=== PATIENT | female | born 1935 | race Caucasian/White ===

== ENCOUNTER 2020-08-18 21:39 | Emergency (ER) | payer MEDICARE, MEDICAID ==
[~2020-08-18] VITALS: Ht 165.1 cm; Wt 62.3 kg
[2020-08-18 22:02] LABS: BASO % 0.4 % (0.0-2.0); GRAN # 3.1 (1.4-6.5); HEMATOCRIT 42.8 % (37.0-47.0); LYMPH # 0.8 (1.2-3.4); LYMPH % 18.2 % (20.0-51.0); MEAN CELL VOLUME 93 fl (80.0-100.0); MEAN CORPUSCULAR HEMOGLOBIN 30 pg (27.0-31.0); MEAN CORPUSCULAR HGB CONC 33 g/dl (33.0-37.0); MEAN PLATELET VOLUME 8.7 fl (7.4-10.4); MONO # 0.6 (0.1-0.6); MONO % 13.2 % (1.7-9.3); PLATELET COUNT 243 K/mm3 (130-400); RED BLOOD COUNT 4.61 M/mm3 (4.10-5.30); REDCELL DISTRIBUTION WIDTH-CV 13.2 % (11.5-14.5)
[2020-08-18 22:08] LABS: PROTHROMBIN TIME 11.6 SECONDS (9.7-12.8)
[2020-08-18 22:10] LABS: PARTIAL THROMBOPLASTIN TIME 28.4 SECONDS (26.0-37.0)
[2020-08-18 22:20] LABS: C-REACTIVE PROTEIN 1.9 mg/dL (0.0-0.9)
[2020-08-18 22:21] LABS: ERYTHROCYTE SEDIMENTATION RATE 14 mm/hr (0-30)
[2020-08-18 22:31] LABS: TROPONIN-I < 0.012 ng/mL (0.000-0.035)
[2020-08-19 00:24] LABS: MUCOUS Present /lpf; PH 5 (5-8); SQUAMOUS EPITHELIAL 20-50 /hpf; URINE APPEARANCE Cloudy; URINE BACTERIA Occasional /hpf; URINE BILIRUBIN Negative (NEGATIVE); URINE BLOOD Negative (NEGATIVE); URINE COLOR Amber; URINE GLUCOSE Negative (NEGATIVE); URINE KETONE Negative (NEGATIVE); URINE LEUKOCYTE ESTERASE 3+ (NEGATIVE); URINE NITRATE Negative (NEGATIVE); URINE PROTEIN(semi-quant) 1+ (NEGATIVE); URINE RBC 20-50 /hpf; URINE WBC >50 /hpf
[2020-08-19] MEDS ORDERED: OMNICEF 300MG300 MG PO (00:58)
[2020-08-19] MEDS ORDERED: DECADRON6 MG PO (00:58)
[2020-08-19 01:04] LABS: ALBUMIN 3.8 gm/dL (3.5-5.0); BILIRUBIN,TOTAL 0.4 mg/dL (0.0-1.0); CALCIUM 8.9 mg/dL (8.4-10.2); CREATININE, serum 0.74 (0.52-1.25); POTASSIUM 4.2 mmol/L (3.4-5.0); TOTAL PROTEIN 7.1 gm/dL (6.4-8.2)
[2020-08-19] MEDS ORDERED: TYLENOL 325MG325 MG PO (02:31)
[2020-08-19] MEDS ORDERED: ALBUTEROL0.83 MG/ML IH (03:01)
[2020-08-19] MEDS ORDERED: PULMOZYME2.5 MG/2.5 IH (03:03)
[2020-08-19] MEDS ORDERED: VITAMIN B11000 MCG/M IM (03:03)
[2020-08-19] MEDS ORDERED: CYMBALTA 60MG60 MG PO (03:04)
[2020-08-19] MEDS ORDERED: GOOD SENSE TUS120 ML PO (03:06)
[2020-08-19] MEDS ORDERED: NORCO 325 MG-51 TAB PO ×2 (03:07→03:12)
[2020-08-19] MEDS ORDERED: COLACE 100100 MG/CAP PO (03:07)
[2020-08-19] MEDS ORDERED: ATIVAN 0.50.5 MG/TAB PO (03:09)
[2020-08-19] MEDS ORDERED: HYDROCORTISONE30 G3 TP (03:09)
[2020-08-19] MEDS ORDERED: MIRALAX PA17 GM/Dose PO (03:10)
[2020-08-19] MEDS ORDERED: GOOD NEIGH1200 MG/15 (03:10)
[2020-08-19] MEDS ORDERED: DUO-KAPS1 CAP PO (03:11)
[2020-08-19 03:15] VITALS: BP 120/67; PULSE 77
[2020-08-19] MEDS ORDERED: SEROQUEL 2525 MG/TAB PO (03:56)
[2020-08-19] MEDS ORDERED: PRILOTC (03:57)
[2020-08-19] MEDS ORDERED: DESYREL 50MG50 MG PO (03:57)
[2020-08-19] MEDS ORDERED: DULCOLAX S10 MG/SUPP RC (03:58)
[2020-08-19] MEDS ORDERED: [UNRECOGNIZED DRUG - OTHER] TOP (03:59)
[2020-08-19 19:20] LABS: COLLECTION METHOD CATHETER
== END 2020-08-19 03:30 | disposition home or self-care (01) ==
LOC: COL.ER 21:39
PROVIDERS: Emergency Medicine
DX: U07.1 COVID-19 (principal); J12.82 Pneumonia due to coronavirus disease 2019; N39.0 Urinary tract infection, site not specified; Z88.2 Allergy status to sulfonamides
CPT/HCPCS: J0456; J0696; J1100; J7030; J7050

== ENCOUNTER 2020-08-20 18:39 | Inpatient (IN) | payer MEDICARE, MEDICAID ==
[2020-08-20] VITALS (24 sets, daily range): O2SAT 75–100
[~2020-08-20] VITALS: Wt 61.8 kg
[~2020-08-20 18:39] MED LIST: ALBUTEROL0.83 MG/ML IH; ATIVAN 0.50.5 MG/TAB PO; COLACE 100100 MG/CAP PO; CYMBALTA 60MG60 MG PO; DECADRON6 MG PO; DESYREL 50MG50 MG PO; DULCOLAX S10 MG/SUPP RC; DUO-KAPS1 CAP PO; GOOD NEIGH1200 MG/15; GOOD SENSE TUS120 ML PO; HYDROCORTISONE30 G3 TP; MIRALAX PA17 GM/Dose PO; NORCO 325 MG-51 TAB PO; OMNICEF 300MG300 MG PO; PRILOTC; PULMOZYME2.5 MG/2.5 IH; SEROQUEL 2525 MG/TAB PO; TYLENOL 325MG325 MG PO; VITAMIN B11000 MCG/M IM; [UNRECOGNIZED DRUG - OTHER] TOP
[2020-08-20 19:06] LABS: HEMATOCRIT 42.6 % (37.0-47.0); MEAN CELL VOLUME 92 fl (80.0-100.0); MEAN CORPUSCULAR HEMOGLOBIN 30 pg (27.0-31.0); MEAN CORPUSCULAR HGB CONC 33 g/dl (33.0-37.0); PLATELET COUNT 264 K/mm3 (130-400); RED BLOOD COUNT 4.63 M/mm3 (4.10-5.30); REDCELL DISTRIBUTION WIDTH-CV 12.7 % (11.5-14.5)
[2020-08-20 19:21] LABS: ALBUMIN 4.1 gm/dL (3.5-5.0); BILIRUBIN,TOTAL 0.4 mg/dL (0.0-1.0); CALCIUM 8.9 mg/dL (8.4-10.2); CREATININE, serum 0.78 (0.52-1.25); POTASSIUM 3.9 mmol/L (3.4-5.0); TOTAL PROTEIN 7.3 gm/dL (6.4-8.2)
[2020-08-20 19:41] LABS: ARTERIAL BLD GAS O2 SATURATION 92.3 % (92-100); ARTERIAL BLOOD GAS BASE EXCESS -5.6 (-2-2); ARTERIAL BLOOD GAS HCO3 19.8 meq/L (22-26); ARTERIAL BLOOD GAS PCO2 38.5 mmHg (35-45); ARTERIAL BLOOD GAS PO2 69.8 mmHg (80-100); ARTERIAL BLOOD GAS pH 7.33 (7.35-7.45)
[2020-08-20 19:46] LABS: HYPOCHROMIA 1+; LYMPHOCYTE 1 % (20.0-51.0); NEUTROPHILS 95 % (42.0-75.2); PLATELET ESTIMATE NORMAL (NORMAL)
[2020-08-20 19:50] LABS: TROPONIN-I 0.344 ng/mL (0.000-0.035)
[2020-08-20 21:32] LABS: COLLECTION METHOD CATHETER
[2020-08-20 21:40] LABS: MUCOUS Present /lpf; PH 5 (5-8); URINE APPEARANCE Hazy; URINE BACTERIA None Seen /hpf; URINE BILIRUBIN Negative (NEGATIVE); URINE BLOOD Negative (NEGATIVE); URINE COLOR Yellow; URINE GLUCOSE Negative (NEGATIVE); URINE KETONE Negative (NEGATIVE); URINE LEUKOCYTE ESTERASE Negative (NEGATIVE); URINE NITRATE Negative (NEGATIVE); URINE PROTEIN(semi-quant) 1+ (NEGATIVE); URINE RBC 0-2 /hpf; URINE UROBILINOGEN Negative (NEGATIVE)
--- NOTE | 2020-08-20 23:40 | NUR ---
Arrived to the unit via stretcher; alert and oriented to self only. Patient appeared scared and began crying when told she was in the hospital. Attempted to re-orient and reassure patient. Able to squeeze nurses hands on command and can respond to some simple yes and no quesions appropriately. Assisted with tracey-care and placed purwick due to incontinence. Attached to all monitors. Call light left within reach.
[2020-08-21] VITALS (799 sets, daily range): BP systolic 113–149; BP diastolic 69–84; PULSE 68–76; TEMP 97.7–99.5; O2SAT 67–100
[2020-08-21] MEDS ORDERED: PULMICORT0.5 MG/2 M IH (02:48)
[2020-08-21 04:43] LABS: MEAN CELL VOLUME 93 fl (80.0-100.0); MEAN CORPUSCULAR HGB CONC 32 g/dl (33.0-37.0); PLATELET COUNT 216 K/mm3 (130-400); RED BLOOD COUNT 3.91 M/mm3 (4.10-5.30)
[2020-08-21 04:46] LABS: HEMATOCRIT 36.2 % (37.0-47.0); HEMOGLOBIN 11.7 g/dl (12.5-16.0); MEAN CORPUSCULAR HEMOGLOBIN 30 pg (27.0-31.0)
[2020-08-21 04:55] LABS: ALBUMIN 3.2 gm/dL (3.5-5.0); BILIRUBIN,TOTAL 0.3 mg/dL (0.0-1.0); CALCIUM 7.7 mg/dL (8.4-10.2); CREATININE, serum 0.61 (0.52-1.25); TOTAL PROTEIN 6.1 gm/dL (6.4-8.2)
--- NOTE | 2020-08-21 05:00 | NUR ---
Patient awake and resting in bed; occasionally takes off her oxygen cannula. Staff assists patient to put cannula back on. Reminded of importance of keeping her oxygen on at all times. Patient pleasantly confused but cooperative with staff. VS stable; call light left within reach.
[2020-08-21 05:09] LABS: HYPOCHROMIA 1+; LYMPHOCYTE 6 % (20.0-51.0); NEUTROPHILS 92 % (42.0-75.2); PLATELET ESTIMATE NORMAL (NORMAL)
[2020-08-21 05:14] LABS: TROPONIN-I 0.211 ng/mL (0.000-0.035)
--- NOTE | 2020-08-21 06:25 | NUR ---
Notified by blemish removerEm NYE that patient's heart rate was in the 140's. Upon entering the room patient was oberved with her legs sideways partly out of the bed. Nasal cannula was out of her nose and patient was extremely anxious and crying. Cannula was put back in nose and with the assistance of POPEYE Strickland. Patient was repositiong appropriately into bed. Attempted to calm and reassure patient. A pproximately 10 min HR in the 90's and 02 93% on 4L. Pt in sinus rhythm at this time.
--- NOTE | 2020-08-21 11:21 | NUR ---
[employer] contacted patient's DPOA-HC/niece, Abbie Goodman (ph#[phone]) to complete initial intake. [facility] Dr[facility] Archibald for primary care. Abbie states her mother, Roslaina Patton was patient's DPOA, however she last August. Plan is for patient to return to [facility] upon discharge. SW contacted [facility] and requested copy of DPOA-HC. SW received DPOA-HC via fax then placed copy on patient's chart. SW [facility]ed [facility] to [facility]. CARLOS attended clinical rounds with the team and patient to transfer to the medical floor once a bed is available. CARLOS will continue to follow.
--- NOTE | 2020-08-21 12:03 | NUR ---
Chaplain begum for the patient while standing outside the door.
--- NOTE | 2020-08-21 21:30 | NUR ---
Patient in bed crying with labored breathing. Assisted with repositioning to a more comfortable position. This nurse talked with patient for several minutes in attempt to calm and reassure her. Patient responded well to verbal reassurance. Has PRN pain and anxiety medications which will be administered. Will continue to monitor.
[2020-08-22] VITALS (97 sets, daily range): BP systolic 122–212; BP diastolic 66–149; PULSE 61–97; TEMP 97.4–102.6; O2SAT 75–99
--- NOTE | 2020-08-22 03:00 | NUR ---
Patient transfered from unit to medical floor. Patient alert per her usual and in no distress upon transfer. Belongings transfered with patient.
--- NOTE | 2020-08-22 06:14 | NUR ---
Patient arrived to medical unit from ICU at approximately 0300. Patient was on oxygen at 3 L/min via NC. SPO2 88-89%. Increased oxygen to 4 L/min via NC, with SPO2 at 92-94%. Denies having pain and discomfort. INT to right forearm. LS expiratory wheezing. Respirations even and unlabored. HRR. Telemetry in place. Capillary refill less than 3 seconds. Non-tenting skin turgor. BSAx4. Abdomen soft and non-tender. No edema. Voices no questions, needs, or concerns at this time. Resting in bed with call light within reach.
[2020-08-22 06:40] LABS: BASO % 0.1 % (0.0-2.0); HEMATOCRIT 37.2 % (37.0-47.0); HEMOGLOBIN 12.1 g/dl (12.5-16.0); LYMPH # 0.7 (1.2-3.4); LYMPH % 9.6 % (20.0-51.0); MEAN CELL VOLUME 94 fl (80.0-100.0); MEAN CORPUSCULAR HEMOGLOBIN 31 pg (27.0-31.0); MEAN CORPUSCULAR HGB CONC 33 g/dl (33.0-37.0); MEAN PLATELET VOLUME 9.4 fl (7.4-10.4); MONO # 0.6 (0.1-0.6); MONO % 7.8 % (1.7-9.3); PLATELET COUNT 234 K/mm3 (130-400); RED BLOOD COUNT 3.94 M/mm3 (4.10-5.30); REDCELL DISTRIBUTION WIDTH-CV 13.1 % (11.5-14.5)
[2020-08-22 06:49] LABS: CALCIUM 8.4 mg/dL (8.4-10.2); CREATININE, serum 0.74 (0.52-1.25); MAGNESIUM 2.2 mg/dL (1.6-2.3); POTASSIUM 3.6 mmol/L (3.4-5.0)
[2020-08-22 07:08] LABS: TROPONIN-I 0.07 ng/mL (0.000-0.035)
--- NOTE | 2020-08-22 11:16 | NUR ---
Patient alert and oriented to self. withdraw body when accessing abdomen. patient tachypnea 22-24/mins. refuse back and sacral region assessment. Patient took medication okay. resting in bed at this time.
--- NOTE | 2020-08-22 12:05 | NUR ---
gave tylenol for temp of 102.6, 88% on 5L, o2 increased to 7L at 93%.
[2020-08-22 15:30] LABS: ARTERIAL BLD GAS O2 SATURATION 96.9 % (92-100); ARTERIAL BLD GAS TCO2 CT 22.1; ARTERIAL BLOOD GAS BASE EXCESS -3.4 (-2-2); ARTERIAL BLOOD GAS PCO2 35.6 mmHg (35-45); ARTERIAL BLOOD GAS PO2 92.9 mmHg (80-100); ARTERIAL BLOOD GAS pH 7.39 (7.35-7.45)
--- NOTE | 2020-08-22 16:52 | NUR ---
Patient resting in bed. incontinent of urine and stool. Purewick in place attached to medium suction. Patient on 7L HFNC at 94%. REMDESIVIR DAY 2 TODAY. ABG PH7.79, CO2 - 35.6, HCO3 21.0 . LOSS STOOL * 1
--- NOTE | 2020-08-22 20:50 | NUR ---
Patient assessed at this time. Alert and oriented to self. High fall risk precautions in place. Peripheral IV to right forearm. On oxygen at 5 L/min via NC. LS CTA in upper lobes, diminished in lower. Respirations even and unlabored. HRR. Telemetry in place. Capillary refill less than 3 seconds. Non-tenting skin turgor. BSAx4. Abdomen soft and non-tender. 1+ edema BLE. Purewick exernal female catheter with clear carola urine. Resting in bed with call light within reach.
[2020-08-23] VITALS (7 sets, daily range): BP systolic 113–153; BP diastolic 54–75; PULSE 47–56; TEMP 97.2–98.2
--- NOTE | 2020-08-23 06:30 | NUR ---
Patient has been resting in bed with call light within reach. Awakens easily. Very hard of hearing. Denies pain and discomfort. Continues on oxygen at 5 L/min via NC. Patient repositioned in bed. Purewick catheter changed. Voices no questions, needs, or concerns at this time. Resting in bed with call light within reach. High fall risk precautions in place.
[2020-08-23 07:09] LABS: CALCIUM 8.4 mg/dL (8.4-10.2); CREATININE, serum 0.56 (0.52-1.25); GRAN # 2.6 (1.4-6.5); GRAN % 67.4 % (42.2-75.2); HEMATOCRIT 37.4 % (37.0-47.0); HEMOGLOBIN 12.2 g/dl (12.5-16.0); LYMPH # 0.7 (1.2-3.4); LYMPH % 17.9 % (20.0-51.0); MEAN CELL VOLUME 91 fl (80.0-100.0); MEAN CORPUSCULAR HEMOGLOBIN 30 pg (27.0-31.0); MEAN CORPUSCULAR HGB CONC 33 g/dl (33.0-37.0); MEAN PLATELET VOLUME 9.7 fl (7.4-10.4); MONO # 0.6 (0.1-0.6); MONO % 14.2 % (1.7-9.3); PLATELET COUNT 242 K/mm3 (130-400); POTASSIUM 3.5 mmol/L (3.4-5.0); REDCELL DISTRIBUTION WIDTH-CV 12.8 % (11.5-14.5)
--- NOTE | 2020-08-23 14:40 | NUR ---
CARLOS Saravia) faxed record updates to [facility] per request. Social work will continue to follow.
--- NOTE | 2020-08-23 15:06 | NUR ---
Pt assessment completed and charted, medications administered per mar. Pt has been alert but confused. Pt on 4L HFNC today, satting well, breathing even and unlabored. LS cta. HRRR, BS active. Pt had 22G IV to RF, infiltrated, site moved, 22G to LF, flushes well. Pt has purewick external catheter in place, draining clear carola urine. Pt repositioned throughout day, heels floated, no skin issues noted. Pt refusing to eat, states she is not hungry. Will try to get her to eat dinner. Pt c/o back pain, pain medication administered per mar. No further needs expressed.
--- NOTE | 2020-08-23 17:35 | NUR ---
Pt refusing dinner at this time.
[2020-08-24 04:00] VITALS: BP 126/83; PULSE 52; TEMP 97.3
--- NOTE | 2020-08-24 06:22 | NUR ---
RESTING QUIETLY. NO DYSPNEA AT REST. O2 ON AT 3.5 LITERS WHEN PT WAS WILLING TO WEAR IT.
[2020-08-24 07:34] VITALS: BP 124/57; PULSE 56; TEMP 97.4
[2020-08-24 08:07] LABS: GRAN # 3.7 (1.4-6.5); GRAN % 72.4 % (42.2-75.2); HEMATOCRIT 39.4 % (37.0-47.0); HEMOGLOBIN 13.1 g/dl (12.5-16.0); LYMPH # 0.9 (1.2-3.4); LYMPH % 17.5 % (20.0-51.0); MEAN CELL VOLUME 91 fl (80.0-100.0); MEAN CORPUSCULAR HEMOGLOBIN 30 pg (27.0-31.0); MEAN CORPUSCULAR HGB CONC 33 g/dl (33.0-37.0); MEAN PLATELET VOLUME 10.2 fl (7.4-10.4); MONO # 0.5 (0.1-0.6); MONO % 9.7 % (1.7-9.3); PLATELET COUNT 319 K/mm3 (130-400); RED BLOOD COUNT 4.35 M/mm3 (4.10-5.30); REDCELL DISTRIBUTION WIDTH-CV 12.5 % (11.5-14.5)
[2020-08-24 08:20] LABS: CALCIUM 8.7 mg/dL (8.4-10.2); CREATININE, serum 0.68 (0.52-1.25); POTASSIUM 3.3 mmol/L (3.4-5.0)
--- NOTE | 2020-08-24 10:09 | NUR ---
Pt assessment completed and charted, medications administered per mar. pt tolerated well. Pt alert but confused. Pt denies pain, doesn't appear to be in distress. Pt has LFA INT IV that flushes well. Pt on 3L HFNC. UL LS cta. No edema noted. Pt assisted in eating some breakfast, refused most of it. No other needs expressed at this time. Pt repositioned. Pure wick external catheter in place, draining cloudy carola urine.
[2020-08-24 11:23] VITALS: BP 115/88; PULSE 61; TEMP 97.2
--- NOTE | 2020-08-24 16:17 | NUR ---
New IV started, 22G to RFA. LFA INT IV was infiltrated. Abx running w/o issue.
[2020-08-24 16:51] VITALS: BP 149/79; PULSE 50
[2020-08-24 21:17] VITALS: BP 127/82; PULSE 53; TEMP 98.8
[2020-08-25] VITALS (7 sets, daily range): BP systolic 129–152; BP diastolic 53–92; PULSE 45–53; TEMP 97.2–98.2
--- NOTE | 2020-08-25 05:38 | NUR ---
NO DYSPNEA AT REST. HEART RATE USUALLY RUNNING 37-45 bpm WHEN ASLEEP, SINUS RHYTHM. PT DENIED DISCOMFORT THIS MORNING. POOR URINARY OUTPUT THOUGH PT HAS NOT TAKEN IN A GREAT DEAL OF WATER DURING THE NIGHT.
[2020-08-25 07:20] LABS: GRAN # 5.2 (1.4-6.5); GRAN % 72.8 % (42.2-75.2); HEMOGLOBIN 13.2 g/dl (12.5-16.0); LYMPH # 1.1 (1.2-3.4); LYMPH % 14.6 % (20.0-51.0); MEAN CELL VOLUME 92 fl (80.0-100.0); MEAN CORPUSCULAR HEMOGLOBIN 30 pg (27.0-31.0); MEAN CORPUSCULAR HGB CONC 33 g/dl (33.0-37.0); MEAN PLATELET VOLUME 10.1 fl (7.4-10.4); MONO # 0.9 (0.1-0.6); PLATELET COUNT 341 K/mm3 (130-400); RED BLOOD COUNT 4.35 M/mm3 (4.10-5.30); REDCELL DISTRIBUTION WIDTH-CV 12.6 % (11.5-14.5)
[2020-08-25 07:40] LABS: CALCIUM 8.7 mg/dL (8.4-10.2); CREATININE, serum 0.62 (0.52-1.25); POTASSIUM 3.8 mmol/L (3.4-5.0)
--- NOTE | 2020-08-25 12:09 | NUR ---
The patient is to tentatively d/c tomorrow, 08/26. CARLOS notified and faxed updates to Mony at [facility]. CARLOS contacted and updated the patient's niece, Abbie. Abbie is agreeable to the plan. CARLOS also read the IM form outloud to Abbie over the phone. Abbie verbalized understanding and gave SW approval to sign the form on her behalf. SW to continue to follow.
--- NOTE | 2020-08-25 16:37 | NUR ---
0830: Pt assessment completed and charted, medications administered per oct. pt alert, confused at baseline. This nurse in room at 0830 this morning for assessment and meds. Pt laying in bed, pt c/o pain, difficult to assess where the pain is, pt unable to describe or rate the pain. Pt states she pain in her legs, no swelling or redness noted. Pt then states her abdomen hurts but unable to describe it. Hospitalist in to assess patient, pt c/o of pain during auscultation of heart. PRN [place] and one time dose of toradol administered per oct/physician order. @ 0900 and 0926. Incontinent care provided, purewick changed. Pts moods up and down, pt appears happy and then crying and back to calm within seconds, pt consoled and support provided. Pt cooperative w/ cares. Pt has RFA INT IV that flushes well, no issues noted at this time. LS cta, no other concerns expressed. 1700: Pt mood has improved, denying pain at this time.
--- NOTE | 2020-08-25 23:29 | NUR ---
Patient alert but not oriented. Patient denies any pain or discomfort. Denies SOB or dyspnea. Patient currently on oxygen 2L via NC. Breathing even and unlabored. No s/s of respiratory distress noted. Scheduleld meds given per OCT. Right forearm IV site has no s/s of complications. Purewick in place and draining dark tea color urine. Call light within reach. Patient denies any need at this time.
[2020-08-26 03:35] VITALS: BP 145/73; PULSE 53; TEMP 97.5
--- NOTE | 2020-08-26 05:28 | NUR ---
Noticed patient was moaning and soft crying at 00:20 am. Patient reports hurting everywhere. PRN [place] given at 00: 29 am for generalized pain. PRN Ativan given for anxiety. Patient slept well afterwards. Right forearm IV got infiltrated this am. Removed IV, applied ice pack and elevated right arm on the pillow. 22G INT to left forearm started by powerhouse helper. Call light within reach. Will give report to day shift nurse.
[2020-08-26 07:15] LABS: HEMOGLOBIN 13.4 g/dl (12.5-16.0); MEAN CELL VOLUME 92 fl (80.0-100.0); MEAN CORPUSCULAR HEMOGLOBIN 31 pg (27.0-31.0); MEAN CORPUSCULAR HGB CONC 34 g/dl (33.0-37.0); MEAN PLATELET VOLUME 10.4 fl (7.4-10.4); PLATELET COUNT 354 K/mm3 (130-400); RED BLOOD COUNT 4.33 M/mm3 (4.10-5.30); REDCELL DISTRIBUTION WIDTH-CV 12.6 % (11.5-14.5)
[2020-08-26 07:23] LABS: CALCIUM 8.6 mg/dL (8.4-10.2); CREATININE, serum 0.74 (0.52-1.25); POTASSIUM 3.8 mmol/L (3.4-5.0)
[2020-08-26 08:30] VITALS: BP 166/72; PULSE 51; TEMP 97.1
[2020-08-26 09:33] LABS: BAND 4 % (0-10); LYMPHOCYTE 16 % (20.0-51.0); METAMYELOCYTE 2 % (0-0); NEUTROPHILS 64 % (42.0-75.2); PLATELET ESTIMATE NORMAL (NORMAL)
[2020-08-26] MEDS ORDERED: ASPIRIN E.C. 8181 MG PO (09:34)
[2020-08-26] MEDS ORDERED: DECADRON6 MG PO (09:34)
[2020-08-26] MEDS ORDERED: TOPROL XL 25MG25 MG PO (09:34)
[2020-08-26] MEDS ORDERED: LIPITOR 40MG TA40 MG PO (09:34)
[2020-08-26] MEDS ORDERED: NORCO 325 MG-51 TAB PO (09:34)
[2020-08-26] MEDS ORDERED: ATIVAN 0.50.5 MG/TAB PO (09:34)
[2020-08-26] MEDS ORDERED: RT Albuterol HFA MDI IH (09:34)
--- NOTE | 2020-08-26 09:36 | NUR ---
The patient is to discharge today, 08/26, back to [facility] for long-term care. Transportation was scheduled at 1300, via [place]. CARLOS informed the patient's RN and her niece, Abbie, over the phone. They were both agreeable to the time. No additional needs at this time.
--- NOTE | 2020-08-26 09:57 | NUR ---
Patient alert and oriented to only self. show signs of pain by withdrawing and moan during assessment. Plan is to discharge patient to [facility]. discharging with oxygen 2L, new order for ativan, norco and decadron. Patient show low interest towards meal. Resting in bed at this time.
[2020-08-26 11:28] VITALS: BP 137/61; PULSE 53; TEMP 97.7
--- NOTE | 2020-08-26 12:21 | NUR ---
Patient resting in bed. RN called report to [facility], spoke with Mony receiving nursing. Informed Mony about medications administered to patient this am, new medications, current vitals, abnormal labs, and treatment plan during hospitalization. INT discontinued.
--- NOTE | 2020-08-26 15:50 | NUR ---
patient discharged to [facility].
== END 2020-08-26 14:30 | DRG 177 ==
LOC: COL.ER 18:39 → ICU 19:07 → MEDICAL 08-22 03:18
PROVIDERS: Emergency Medicine; Physician Assistant; ADMIT Internal Medicine
PROC: XW033E5 Introduction of Remdesivir Anti-infective into Peripheral Vein, Percutaneous Approach, New Technology Group 5 (ICD-10-PCS; principal; 2020-08-20)
DX: U07.1 COVID-19 (principal); J96.01 Acute respiratory failure with hypoxia; J12.82 Pneumonia due to coronavirus disease 2019; I21.A1 Myocardial infarction type 2; E87.2 Acidosis; I31.3 Pericardial effusion (noninflammatory); N39.0 Urinary tract infection, site not specified; J44.0 Chronic obstructive pulmonary disease with (acute) lower respiratory infection; Z66 Do not resuscitate; I27.20 Pulmonary hypertension, unspecified; E87.6 Hypokalemia; R00.1 Bradycardia, unspecified; F03.90 Unspecified dementia, unspecified severity, without behavioral disturbance, psychotic disturbance, mood disturbance, and anxiety; K21.9 Gastro-esophageal reflux disease without esophagitis; F31.9 Bipolar disorder, unspecified; F41.9 Anxiety disorder, unspecified; G89.29 Other chronic pain; I10 Essential (primary) hypertension; M19.90 Unspecified osteoarthritis, unspecified site; Z88.2 Allergy status to sulfonamides
CPT/HCPCS: 99223-AI; 99232-AI; 99233-AI; 99239; J0456; J0696; J1100; J1650; J1885; J2270; J2405; J7030; J7050; J8540; Q9967

== ENCOUNTER 2020-11-12 10:50 | Emergency (ER) | payer MEDICARE, MEDICAID ==
[~2020-11-12] VITALS: Ht 157.5 cm; Wt 59.1 kg
[~2020-11-12 10:50] MED LIST changes: +ASPIRIN E.C. 8181 MG PO; +LIPITOR 40MG TA40 MG PO; +PULMICORT0.5 MG/2 M IH; +RT Albuterol HFA MDI IH; +TOPROL XL 25MG25 MG PO
[2020-11-12 11:01] VITALS: TEMP 97.6
[2020-11-12 11:44] LABS: BASO # 0.1 (0.0-0.2); BASO % 1.3 % (0.0-2.0); EOS # 0.1 (0.0-0.7); GRAN # 4.1 (1.4-6.5); GRAN % 67.4 % (42.2-75.2); HEMATOCRIT 47.5 % (37.0-47.0); HEMOGLOBIN 15.4 g/dl (12.5-16.0); LYMPH # 1.3 (1.2-3.4); LYMPH % 20.7 % (20.0-51.0); MEAN CELL VOLUME 94 fl (80.0-100.0); MEAN CORPUSCULAR HEMOGLOBIN 31 pg (27.0-31.0); MEAN CORPUSCULAR HGB CONC 32 g/dl (33.0-37.0); MEAN PLATELET VOLUME 8.7 fl (7.4-10.4); MONO # 0.5 (0.1-0.6); MONO % 8.3 % (1.7-9.3); PLATELET COUNT 365 K/mm3 (130-400); RED BLOOD COUNT 5.04 M/mm3 (4.10-5.30); REDCELL DISTRIBUTION WIDTH-CV 13.2 % (11.5-14.5)
[2020-11-12 11:52] LABS: COLLECTION METHOD CATHETER
[2020-11-12 11:54] LABS: ALANINE AMINOTRANSFERASE 46 U/L (4-34); ALBUMIN 4.1 gm/dL (3.5-5.0); ALKALINE PHOSPHATASE 77 U/L (50-136); ANION GAP 7 mmol/L (7-16); AST,SGOT 46 U/L (15-37); BILIRUBIN,TOTAL 0.3 mg/dL (0.0-1.0); BLOOD UREA NITROGEN 21 mg/dL (7-17); CALCIUM 9.5 mg/dL (8.4-10.2); CARBON DIOXIDE 27 mmol/L (22-30); CHLORIDE 108 mmol/L (98-107); CREATININE, serum 0.65 (0.52-1.25); GLUCOSE 90 mg/dL (74-106); POTASSIUM 4.3 mmol/L (3.4-5.0); SODIUM 141 mmol/L (137-145); TOTAL PROTEIN 7.9 gm/dL (6.4-8.2)
[2020-11-12 12:01] LABS: MUCOUS Present /lpf; PH 6 (5-8); SQUAMOUS EPITHELIAL 0-2 /hpf; URINE APPEARANCE Cloudy; URINE BACTERIA Moderate /hpf; URINE BILIRUBIN Negative (NEGATIVE); URINE BLOOD Negative (NEGATIVE); URINE COLOR Amber; URINE GLUCOSE Negative (NEGATIVE); URINE KETONE Negative (NEGATIVE); URINE LEUKOCYTE ESTERASE 3+ (NEGATIVE); URINE NITRATE Positive (NEGATIVE); URINE PROTEIN(semi-quant) 1+ (NEGATIVE); URINE UROBILINOGEN Negative (NEGATIVE)
[2020-11-12 12:08] LABS: TROPONIN-I < 0.012 ng/mL (0.000-0.035)
[2020-11-12] MEDS ORDERED: CEFTIN500 MG PO (12:40)
[2020-11-12 14:10] VITALS: BP 136/68; PULSE 67
[2021-05-16] MEDS ORDERED: CARDIZEM CD 24240 MG PO (11:19)
== END 2020-11-12 14:20 | disposition home or self-care (01) ==
LOC: COL.ER 10:50
PROVIDERS: Physician Assistant
DX: N39.0 Urinary tract infection, site not specified (principal); F31.9 Bipolar disorder, unspecified; I10 Essential (primary) hypertension; Z88.2 Allergy status to sulfonamides; Z79.82 Long term (current) use of aspirin; Z79.51 Long term (current) use of inhaled steroids
CPT/HCPCS: J0696; J7030

== ENCOUNTER 2021-05-14 08:51 | Observation (INO) | payer MEDICARE, MEDICAID ==
[~2021-05-14] VITALS: Ht 152.4 cm; Wt 56.0 kg
[~2021-05-14 08:51] MED LIST changes: +CEFTIN500 MG PO; -GOOD NEIGH1200 MG/15; +GOOD NEIGH1200 MG/15 PO
[2021-05-14 10:43] LABS: BASO # 0.1 K/mm3 (0.0-0.2); EOS # 0.3 K/mm3 (0.0-0.7); EOS % 3.6 % (0-4.0); GRAN # 4.5 K/mm3 (1.4-6.5); GRAN % 64.4 % (42.2-75.2); HEMATOCRIT 42.7 % (37.0-47.0); HEMOGLOBIN 13.7 g/dl (12.5-16.0); LYMPH # 1.3 K/mm3 (1.2-3.4); LYMPH % 18.2 % (20.0-51.0); MEAN CELL VOLUME 96 fl (80.0-100.0); MEAN CORPUSCULAR HEMOGLOBIN 31 pg (27.0-31.0); MEAN CORPUSCULAR HGB CONC 32 g/dl (33.0-37.0); MEAN PLATELET VOLUME 9.1 fl (7.4-10.4); MONO # 0.9 K/mm3 (0.1-0.6); MONO % 12.4 % (1.7-9.3); PLATELET COUNT 378 K/mm3 (130-400); RED BLOOD COUNT 4.45 M/mm3 (4.10-5.30); REDCELL DISTRIBUTION WIDTH-CV 13.6 % (11.5-14.5)
[2021-05-14 10:50] LABS: INR 1.2 (0.8-3.0); PROTHROMBIN TIME 12.9 SECONDS (9.7-12.8)
[2021-05-14 11:04] LABS: BUDDING YEAST Present /hpf; MUCOUS Present /lpf; PH 6 (5-8); SQUAMOUS EPITHELIAL 0-2 /hpf; URINE APPEARANCE Cloudy; URINE BACTERIA None Seen /hpf; URINE BILIRUBIN Negative (NEGATIVE); URINE BLOOD Negative (NEGATIVE); URINE COLOR Amber; URINE GLUCOSE Negative (NEGATIVE); URINE KETONE Negative (NEGATIVE); URINE LEUKOCYTE ESTERASE 3+ (NEGATIVE); URINE NITRATE Negative (NEGATIVE); URINE PROTEIN(semi-quant) 1+ (NEGATIVE)
[2021-05-14 11:05] LABS: COLLECTION METHOD CATHETER
[2021-05-14 11:19] LABS: ALBUMIN 3.6 gm/dL (3.4-4.8); BILIRUBIN,TOTAL 0.6 mg/dL (0.2-1.2); C-REACTIVE PROTEIN 2.2 mg/dL (0.00-0.50); CALCIUM 9.6 mg/dL (8.4-10.2); CREATININE, serum 0.82 mg/dL (0.57-1.11); TOTAL PROTEIN 7.4 gm/dL (6.2-8.1)
--- NOTE | 2021-05-14 13:14 | NUR ---
Patient admitted to room 312. Patient agitated upon transfer. Will complete full assessment at a later time. Fall precautions in place. Call light in reach.
[2021-05-14 13:40] VITALS: BP 142/82; PULSE 83; TEMP 98.1
[2021-05-14 15:55] VITALS: BP 117/59; PULSE 88; TEMP 97.3
--- NOTE | 2021-05-14 19:32 | NUR ---
LISANDRO JIN NOTIFIED OF PATIENT'S HEART RATE JUMPING INTO THE 140'S SUSTAINING FOR A COUPLE OF MINUTES AND THEN DROPPING INTO THE 80'S AND 90'S. MAEVE NOTIFIED. TOLD THIS RN TO OBSERVE OVERNIGHT AND NOTIFY HIM IF HEART RATE WENT OVER 150. EKG ORDERED. INFORMATION PASSED TO POPEYE WALTERS ON [employer] WORKER.
[2021-05-14] MEDS ORDERED: TYLENOL 325MG325 MG PO (19:53)
[2021-05-14] MEDS ORDERED: ALBUTEROL0.83 MG/ML IH (20:12)
[2021-05-14] MEDS ORDERED: ZANTAC-360 (FAM10 MG PO (20:14)
[2021-05-14] MEDS ORDERED: SHINGRIX V50 MCG/0.5 IM (20:15)
[2021-05-14 20:27] VITALS: BP 132/90; PULSE 138; TEMP 98.3
--- NOTE | 2021-05-14 20:30 | NUR ---
INitial shift assessment done- patient very confused, labile in emotions,VSS, o2 at 2L/nc- sats 97%.. Tele on- at times tachy but doesnt last long-few minutes,, per EKG is a junctional tachycardia,, Has purewick on - urine carola, new IV started to right wrist area-- has IV fluids of NS at 50cc/hr
[2021-05-14 21:37] LABS: HEMATOCRIT 43.4 % (37.0-47.0); HEMOGLOBIN 14.2 g/dl (12.5-16.0)
--- NOTE | 2021-05-14 22:45 | NUR ---
Iris OVIEDO called regarding Tele, patient having tachycardia 120-138, only lasts few minutes then back to a sinus 70,s , has some Afib, Afib RVR, and juctional tachycardia, EKG ealier around 2100 showed the junctional tachycardia-- continues to assess on Tele , order to give a dose of lopressor IV at this time, VSS.
[2021-05-14 22:49] VITALS: BP 129/84; PULSE 109
[2021-05-15 00:05] VITALS: BP 107/86; PULSE 76
--- NOTE | 2021-05-15 00:30 | NUR ---
Iris OVIEDO informed of heart rate staying in the 60-70,s after the Lopressor was given-- informed her respiration are in the 30,s sats 97% on the 2L/nc, will give the prn Ativan at this time to help her relax
[2021-05-15 03:33] VITALS: BP 137/83; PULSE 127; TEMP 98.1
--- NOTE | 2021-05-15 05:20 | NUR ---
Has been sleeping well for the past 4-5 hours, turning self in bed, purewick working well- draining carola urine. Tele on- Did have another tachy episide around -05 this am, junctional tachycardia 120,s ,, will let Iris OVIEDO know. Now patients heart is back to 70,s
[2021-05-15 06:38] LABS: BASO # 0.1 K/mm3 (0.0-0.2); BASO % 1.3 % (0.0-2.0); EOS # 0.4 K/mm3 (0.0-0.7); EOS % 6.5 % (0-4.0); GRAN # 3.1 K/mm3 (1.4-6.5); GRAN % 57.1 % (42.2-75.2); HEMATOCRIT 41.2 % (37.0-47.0); HEMOGLOBIN 12.9 g/dl (12.5-16.0); LYMPH # 1.2 K/mm3 (1.2-3.4); MEAN CELL VOLUME 97 fl (80.0-100.0); MEAN CORPUSCULAR HEMOGLOBIN 30 pg (27.0-31.0); MEAN CORPUSCULAR HGB CONC 31 g/dl (33.0-37.0); MEAN PLATELET VOLUME 8.9 fl (7.4-10.4); MONO # 0.7 K/mm3 (0.1-0.6); MONO % 12.7 % (1.7-9.3); PLATELET COUNT 389 K/mm3 (130-400); RED BLOOD COUNT 4.27 M/mm3 (4.10-5.30); REDCELL DISTRIBUTION WIDTH-CV 13.5 % (11.5-14.5)
[2021-05-15 06:55] LABS: CALCIUM 8.8 mg/dL (8.4-10.2); CREATININE, serum 0.73 mg/dL (0.57-1.11); MAGNESIUM 2.2 mg/dL (1.6-2.6); POTASSIUM 3.8 mmol/L (3.5-4.5)
[2021-05-15 07:21] VITALS: BP 121/61; PULSE 118; TEMP 98.1
--- NOTE | 2021-05-15 09:49 | NUR ---
Initial visit; Patient resting, Cow Trimmer left card offering God's blessings and the availability of spiritual care at our hospital.
--- NOTE | 2021-05-15 10:00 | NUR ---
Assessment completed, patient is drowsy but arousable, she is very disoriented with a known diagnosis/Hx of dementia, she is unable to follow commands or answer any questions appropriately, she does not appear to be in pain or discomfort at rest, her right lower leg is the concern with a large Hematoma noted/ very edematous with brownish/ purple discoloration noted, Ortho was consulted and have evaluated, US and X-ray have been completed upon admission, it is warmer than her left leg an is tender to touch and patient does withdrawl from pain, pedal pulses are weak but palpable, heart irregular and cardiology consulted/ patient has hx of ST with PAc's, lungs CTA/ no resp.dificutly, bed alarm is set and will cotninue to monitor closely
[2021-05-15 11:21] VITALS: BP 129/92; PULSE 80; TEMP 98.2
--- NOTE | 2021-05-15 13:54 | NUR ---
Primary nurse was assisted with [id number] patient care by [employer] Channing Hamilton and [employer] instructor Kaycee Freeman MSN, RN
[2021-05-15 15:31] VITALS: BP 134/58; PULSE 79; TEMP 98.4
--- NOTE | 2021-05-15 15:34 | NUR ---
[employer] contacted patient's niece/DPOA-HC, Abbie (ph#[phone]) to discuss discharge planning as patient has underlying dementia. Abbie advised patient lives at [facility] and the plan will be for her to return there upon discharge. Patient has Advance Directives in EMR which designate Rosalina Torresyton (now ) and Abbie Goodman. CARLOS contacted Monique at [facility] who confirmed that patient is a terminal press operator care resident and will return there at discharge. CARLOS faxed clinical updates. Discharge Plan: [facility]
[2021-05-15 20:10] VITALS: BP 115/65; PULSE 96; TEMP 98.2
--- NOTE | 2021-05-15 23:25 | NUR ---
ALERT BUT NOT ORIENTATED. PT IS HARD TO ASSESS SHE IS SEVERELY DEMENTED. CANT RATE PAIN BUT STATES"IT HURTS" POINT TO LEFT ASHTON WHICH IS SWOLLEN RED AND BRUSED. TRYED TO ELEVATE ON PILLOW BUT PT SCREAMS WHEN TOUCHING HER. FEED HER PUDDING W CRUSHED MEDS. NORCO GIVEN. PT RESTING W EYES CLOSED AND STOPS YELLING OUT AFTER PAIN MED AND WARM BLANET. BED ALARM COUNSELLORS LIGHT WI REACH.
[2021-05-16 01:01] VITALS: BP 127/60; PULSE 88; TEMP 98.1
[2021-05-16 04:56] VITALS: BP 103/67; PULSE 78; TEMP 98.1
--- NOTE | 2021-05-16 05:47 | NUR ---
Rested through the night without incident.
[2021-05-16 07:07] VITALS: BP 118/68; PULSE 79; TEMP 98.5
[2021-05-16 07:07] LABS: BASO # 0.1 K/mm3 (0.0-0.2); BASO % 0.9 % (0.0-2.0); EOS # 0.2 K/mm3 (0.0-0.7); EOS % 2.8 % (0-4.0); GRAN # 3.4 K/mm3 (1.4-6.5); HEMATOCRIT 43.2 % (37.0-47.0); HEMOGLOBIN 13.6 g/dl (12.5-16.0); LYMPH # 1.2 K/mm3 (1.2-3.4); LYMPH % 21.5 % (20.0-51.0); MEAN CELL VOLUME 96 fl (80.0-100.0); MEAN CORPUSCULAR HEMOGLOBIN 30 pg (27.0-31.0); MEAN CORPUSCULAR HGB CONC 32 g/dl (33.0-37.0); MONO # 0.6 K/mm3 (0.1-0.6); MONO % 11.4 % (1.7-9.3); PLATELET COUNT 437 K/mm3 (130-400); REDCELL DISTRIBUTION WIDTH-CV 13.3 % (11.5-14.5)
[2021-05-16 07:28] LABS: CALCIUM 9.4 mg/dL (8.4-10.2); CREATININE, serum 0.77 mg/dL (0.57-1.11); POTASSIUM 4.1 mmol/L (3.5-4.5)
[2021-05-16] MEDS ORDERED: LIPITOR 40MG TA40 MG PO (11:18)
[2021-05-16] MEDS ORDERED: OMNICEF 300MG300 MG PO (11:18)
[2021-05-16] MEDS ORDERED: CARDIZEM CD 24240 MG PO ×2 (11:19)
[2021-05-16 11:21] VITALS: BP 116/65; PULSE 81; TEMP 97.6
--- NOTE | 2021-05-16 11:29 | NUR ---
CARLOS update: Notified of Discharge, Social work called [facility] for dicsharge. CARLOS spoke to Demi (nurse) for transfer of care. Patient's pharmacy is [facility] in [place] but they will close at noon and not return to business until Tuesday05/18/2021. CARLOS coordinated with [facility] for scripts she informed me that our pharmacy will cover until tuesday to support transfer. Social work notified [facility] for DC orders and will fax orders and patient is scheduled for transfer at 12:30-1:00 p.m. NF
[2021-05-16 13:03] VITALS: BP 116/65; PULSE 81; TEMP 97.6
[2021-07-10] MEDS ORDERED: ATIVAN 1MG T1 MG/TAB PO (11:55)
[2021-07-10] MEDS ORDERED: ROXANOL 20MG20 MG/ML SL (11:55)
[2021-07-10] MEDS ORDERED: ATROPINE SULFATE5 ML SL (11:56)
[2021-07-10] MEDS ORDERED: ZOFRAN ODT4 MG PO (11:57)
[2021-07-10] MEDS ORDERED: REFRESH TEARS 330 ML OP (11:57)
== END 2021-05-16 13:30 ==
LOC: COL.ER 08:51 → MEDICAL 12:27
PROVIDERS: Emergency Medicine; Student in an Organized Health Care Education/Training Program; ADMIT Internal Medicine
DX: S80.11XA Contusion of right lower leg, initial encounter (principal); N39.0 Urinary tract infection, site not specified; I25.2 Old myocardial infarction; I47.1 Supraventricular tachycardia; I48.91 Unspecified atrial fibrillation; I87.2 Venous insufficiency (chronic) (peripheral); J44.9 Chronic obstructive pulmonary disease, unspecified; E78.5 Hyperlipidemia, unspecified; K59.00 Constipation, unspecified; K21.9 Gastro-esophageal reflux disease without esophagitis; G47.00 Insomnia, unspecified; R52 Pain, unspecified; M81.0 Age-related osteoporosis without current pathological fracture; M19.90 Unspecified osteoarthritis, unspecified site; F31.9 Bipolar disorder, unspecified; F03.90 Unspecified dementia, unspecified severity, without behavioral disturbance, psychotic disturbance, mood disturbance, and anxiety; Z79.899 Other long term (current) drug therapy; Z79.891 Long term (current) use of opiate analgesic; Z79.82 Long term (current) use of aspirin
CPT/HCPCS: 99223-AI; 99232-AI; 99239; G0378; J0696; J7030